=== PATIENT | male | born 1935 | race Caucasian/White ===

== ENCOUNTER 2020-06-14 15:24 | Emergency (ER) | payer OTHER ==
[~2020-06-14] VITALS: Ht 167.6 cm; Wt 77.1 kg
[2020-06-14 15:32] VITALS: BP_SYST 172
--- NOTE | 2020-06-14 15:32 | NUR ---
Patient to ER bed H3 to gown for evaluation. Side rails up.
--- NOTE | 2020-06-14 15:40 | NUR ---
Patient to ER bed H1 to gown for evaluation. Side rails up.
[2020-06-14] MEDS ORDERED: ASPIRIN 81 MG TAB.CHEW PO ONE (15:45)
[2020-06-14] MEDS ORDERED: NACL 0.9% 1,000 ML IV ONE (15:45)
--- NOTE | 2020-06-14 15:45 | NUR ---
DINORAH TO ASSUME CARE, PT HERE FOR C/O GENERAL WEAKNESS S/P WALKING, PT DENIES CP/SOB AND REQUESTING TO GO HOME
--- NOTE | 2020-06-14 15:57 | NUR ---
DR KHAN IN TO ASSESS
[2020-06-14 16:46] VITALS: BP_SYST 172
--- NOTE | 2020-06-14 16:47 | NUR ---
Patient given written and verbal discharge instructions and verbalizes understanding. ER MD discussed with patient the results and treatment provided. Patient in stable condition. ID arm band removed. No Rx given. Patient educated on pain management and to follow up with PMD. Pain Scale 0/10 . Opportunity for questions provided and answered. Medication side effect fact sheet provided.
== END 2020-06-14 16:47 | disposition home or self-care (01) ==
LOC: SED 15:24
DX: R55 Syncope and collapse (principal); E11.9 Type 2 diabetes mellitus without complications
CPT/HCPCS: 82962; 93005; 99283